=== PATIENT | female | born 1990 | race Two or more races ===

== ENCOUNTER 2023-09-16 11:15 | Outpatient (CLI) | payer MEDICAID ==
[2023-09-16] MEDS ORDERED: iohexol 300mg/ml 100ml inj. ONE (11:33)
== END 2023-09-16 23:59 | disposition home or self-care (01) ==
LOC: RAD 11:15
PROVIDERS: ATTEND Family Medicine
DX: K80.20 Calculus of gallbladder without cholecystitis without obstruction (principal); R10.30 Lower abdominal pain, unspecified
CPT/HCPCS: 74178; J3490; Q9967

== ENCOUNTER 2025-01-03 15:00 | Outpatient (CLI) | payer MEDICAID | END 2025-01-03 23:59 | disposition home or self-care (01) | LOC: RAD 15:00 | PROVIDERS: ATTEND Family Medicine | DX: N39.0 Urinary tract infection, site not specified (principal) | CPT/HCPCS: 76770 ==

== ENCOUNTER 2025-03-29 08:46 | Outpatient (CLI) | payer MEDICAID ==
--- NOTE | 2025-03-29 10:43 | RADIOLOGY REPORT ---
INDICATION: CHRONIC HEP B TECHNIQUE: Multiple real-time sonographic images of the right upper abdomen were obtained. COMPARISON: None FINDINGS: The liver is increased in echogenicity. The liver measures right 19cm. No intrahepatic candido iary ductal dilatation is noted. Gallbladder is surgically absent. Common bile duct measures 3 mm. The right kidney measures 11.3 cm. No hydronephrosis. The pancreas is not well visualized due to obscuration from bowel gas. IMPRESSION: Hepatic steatosis and hepatomegaly. Status post cholecystectomy.
== END 2025-03-29 23:59 | disposition home or self-care (01) ==
LOC: US 08:46
PROVIDERS: ATTEND Preventive Medicine Public Health & General Preventive Medicine
DX: K76.0 Fatty (change of) liver, not elsewhere classified (principal); R16.0 Hepatomegaly, not elsewhere classified; Z90.49 Acquired absence of other specified parts of digestive tract; B18.1 Chronic viral hepatitis B without delta-agent
CPT/HCPCS: 76700